=== PATIENT | female | born 1955 | race Caucasian/White ===

== ENCOUNTER 2016-12-24 21:52 | Emergency (ER) | payer OTHER ==
[2016-12-24 21:56] VITALS: TEMP 98.4
[2016-12-24 22:19] VITALS: O2SAT 94
--- NOTE | 2016-12-24 22:48 | EDPHY ---
H & P Stated Complaint: Pt is having LYNN and throat tightness after eating ice cream Time Seen by Provider: 12/24/16 22:23 HPI/ROS: HPI The patient presents with elevation in her blood pressure which began at about 8 :15 p.m. tonight. She was visiting her mother at an assisted living facility and her blood pressure was checked, it was 178/116. At about 8:00 p.m., she had eaten some ice cream which may have had vanilla extract in it. She takes an MAOI daily. At this time, she felt a pulsating throughout her body which she describes as a pounding sensation. This radiated towards the back of her head and caused her chest to feel tight. She felt somewhat photophobic. This resolved over time and now she feels completely well. She denies any other complaints. This is the 3rd time this has happened her. She was seen in the emergency room in March for similar after eating cheese. Her father earlier in the week. REVIEW OF SYSTEMS Constitutional: No fever, no chills. Eyes: No discharge. ENT: No sore throat. Cardiovascular: No chest pain, no palpitations. Respiratory: No cough, no shortness of breath. Gastrointestinal: No abdominal pain, no vomiting. Genitourinary: No hematuria. Musculoskeletal: No back pain. Skin: No rashes. Neurological: No headache. PMHx: Depression, high cholesterol PHYSICAL General Appearance: Alert, no distress Eyes: Pupils equal and round no pallor or injection ENT, Mouth: Mucous membranes moist Respiratory: There are no retractions, lungs are clear to auscultation Cardiovascular: Regular rate and rhythm Gastrointestinal: Abdomen is soft and non-tender, no masses, bowel sounds normal Neurological: A&O, moves all extremities Skin: Warm and dry, no rashes Musculoskeletal: Neck is supple non tender Extremities: symmetrical, full range of motion Psychiatric: Patient is oriented X 3, there is no agitation Source: Patient - Personal History Current Tetanus/Diphtheria Vaccine: Yes Current Tetanus Diphtheria and Acellular Pertussis (TDAP): Yes Tetanus Vaccine Date: 2014 - Medical/Surgical History Hx Asthma: No Hx Chronic Respiratory Disease: No Hx Diabetes: No Hx Cardiac Disease: No Hx Renal Disease: No Hx Cirrhosis: No Hx Alcoholism: No Hx HIV/AIDS: No Hx Splenectomy or Spleen Trauma: No Other PMH: high cholesterol, knee surg. partial knee repl 2013. cholecystectomy. cellulitis-non mrsa - Social History Smoking Status: Never smoked Constitutional: Initial Vital Signs Temperature (C) 36.9 C 12/24/16 21:54 Heart Rate 79 12/24/16 21:54 Respiratory Rate 16 12/24/16 21:54 Blood Pressure 127/77 H 12/24/16 21:54 O2 Sat (%) 96 12/24/16 21:54 O2 Delivery Mode Room Air Allergies/Adverse Reactions: Sulfa (Sulfonamide Antibiotics) Allergy (Verified 12/24/16 21:57) Home Medications: Medication Instructions Recorded Levothyroxine [Synthroid 75 mcg 75 mcg PO DAILY06 12/17/12 (RX)] [place]-3 Fatty Acids [Fish Oil 1000 1,000 mg PO DAILY 12/17/12 mg (OTC)] lamoTRIgine [LamICTAL 100 MG (RX)] 100 mg PO BID@,18 12/17/12 Multivitamins [Tab-A-Landy] 1 each PO DAILY 08/11/13 Parnate 01/28/15 Medical Decision Making - Diagnostics EKG Interpretation: EKG: Complete interpretation has been separately recorded in the [employer] archive. Summary impression: Normal sinus rhythm Differential Diagnosis: This is a 61-year-old female with history of depression on MAO inhibitor who presents with episode of elevated blood pressure earlier this evening, now resolved. This is associated with diffuse pounding sensation throughout her body. She now denies any complaints. Her blood pressure elevations have resolved on their own. She ate ice cream which had vanilla extract in it which could possibly be the cause of her symptoms. This could also be related to elevated blood pressure. IN would be unlikely. In the emergency room, patient had several normal BP keys. EKG was performed and showed no signs of ischemia. She would like to be discharged and was sent home with her friends. Departure - Departure Disposition: Home, Routine, Self-Care Clinical Impression: Elevated blood pressure reading, MAOI antidepressants causing adverse effect Condition: Good Instructions: Hypertension (ED) Additional Instructions: Please return to the emergency room if your worse in any way. Referrals: Catrachito Arora MD [Primary Care Provider] - As per Instructions
[2016-12-24 23:20] VITALS: BP 112/70; PULSE 78; RESP 12
--- NOTE | 2016-12-25 16:43 | CPEKG ---
Heart Rate: 73 RR Interval: 822 P-R Interval: 140 QRSD Interval: 74 QT Interval: 424 QTC Interval: 468 P [place]: 9 QRS [place]: 24 T Wave [place]: 15 EKG Severity - NORMAL ECG - EKG Impression: SINUS RHYTHM Electronically Signed By: Fareed Beckwith 26-Dec-2016 09:06:07
== END 2016-12-24 23:20 | disposition home or self-care (01) ==
DX: R03.0 Elevated blood-pressure reading, without diagnosis of hypertension (principal); T43.1X5A Adverse effect of monoamine-oxidase-inhibitor antidepressants, initial encounter

== ENCOUNTER 2017-01-09 10:02 | Emergency (ER) | payer OTHER ==
[2017-01-09 10:10] VITALS: O2SAT 96
--- NOTE | 2017-01-09 10:29 | EDPHY ---
H & P Stated Complaint: "feels heart pounding" may be reaction to stress or her meds" HPI/ROS: CHIEF COMPLAINT: Chest Pain, palpitations HISTORY OF PRESENT ILLNESS: Patient complains of palpitations and chest pressure that started around 9:00 a.m. this morning. Also feels that her blood pressure is up because of this. This was approximately 30 minutes after taking her MAOI [place]. She takes for depression as take this for several years. Over the past couple weeks, this was increased to 3 pills twice daily. She took without food. Soon after she started noting the palpitations and pressure. This has happened to her in the past. She feels that it is directly related to the medication but she does not like how she is feeling. She has minimal headache. She has no actual chest pain. No shortness of breath. No fever. No chills. No cough or congestion. No lower extremity erythema edema or pain. No history of venous thrombolic event or PE. PSYCHIATRIST: Dr. Cameron Guevara REVIEW OF SYSTEMS: Ten systems reviewed and are negative unless otherwise noted in the HPI EXAMINATION: General Appearance: Alert, no distress Head: normocephalic, atraumatic Eyes: Pupils equal and round, no conjunctival pallor or injection ENT, Mouth: Mucous membranes moist. Uvula midline. No erythema or edema. Neck: Normal inspection, supple, non-tender Respiratory: Lungs are clear to auscultation. No wheezing, rhonchi or crackles. Cardiovascular: Regular rate and rhythm. No murmur. Pulses intact distally. Gastrointestinal: Abdomen is soft and nontender Back: non-tender, no bony abnormalities Neurological: A&O, nonfocal, normal gait. Strength is symmetric in all limbs. GCS 15. Skin: Warm and dry, no rash Extremities: Nontender, no pedal edema Psychiatric: Mood and affect normal DIFFERENTIAL DIAGNOSES: Including but not limited to in no particular order: Acute Chest Pain, ACS, Stable Angina, Pneumonia, PE, duodenitis, gastritis, esophagitis, GERD MDM: 10:30 a.m. Palpitations and chest pressure that started at approximately 9:00 a.m.. Described as a pressure. Denies actual pain. This feels similar to her previous adverse reactions to the MAOI inhibitor she takes. She took the medicine without food this morning and feels that was the cause. She is in no acute distress. 11:30 a.m. Laboratory studies are all negative. Chest x-ray negative. EKG negative for any acute ischemia. I have re-evaluated the patient. She says her symptoms have not changed much. Offered admission to the hospital for observation and for serial troponins. She has declined. She prefers to be discharged home. She does inform me that she feels this is directly related to the medication that she took this morning and her level of stress. This has happened to her several times in the past. I informed her that although she is likely correct, we cannot be definitive without at least 1 other set of troponin laboratory study. She is aware of this and still wants to be discharged home. Informed that like her to rest today and to return to ER should her pain worsen, she developed pain radiating pain, nausea, vomiting or diaphoresis. She is comfortable with this plan, she is discharged home in stable condition at her request. EKG: Interpreted by Dr. Hairston SUPERVISION: This patient was independently evaluated without direct examination by the attending physician. Case was discussed with attending physician. Source: Patient, Old records Exam Limitations: No limitations - Personal History Current Tetanus/Diphtheria Vaccine: Yes Tetanus Vaccine Date: 2014 - Medical/Surgical History Hx Asthma: No Hx Chronic Respiratory Disease: No Hx Diabetes: No Hx Cardiac Disease: No Hx Renal Disease: No Hx Cirrhosis: No Hx Alcoholism: No Hx HIV/AIDS: No Hx Splenectomy or Spleen Trauma: No Other PMH: high cholesterol, knee surg. partial knee repl 2012. cholecystectomy. cellulitis-non mrsa - Social History Smoking Status: Never smoked Constitutional: Initial Vital Signs Temperature (C) 98.1 F 01/09/17 10:08 Heart Rate 68 01/09/17 10:08 Respiratory Rate 22 H 01/09/17 10:08 Blood Pressure 163/111 H 01/09/17 10:08 O2 Sat (%) 96 01/09/17 10:08 Allergies/Adverse Reactions: Sulfa (Sulfonamide Antibiotics) Allergy (Verified 01/09/17 10:07) Home Medications: Medication Instructions Recorded Levothyroxine [Synthroid 75 mcg 75 mcg PO DAILY06 12/17/12 (RX)] [place]-3 Fatty Acids [Fish Oil 1000 1,000 mg PO DAILY 12/17/12 mg (OTC)] lamoTRIgine [LamICTAL 100 MG (RX)] 100 mg PO BID@12/17/12 Multivitamins [Tab-A-Landy] 1 each PO DAILY 08/11/13 [facility]ate 01/28/15 Medical Decision Making - Diagnostics Imaging Results: Imaging Impressions Chest X-Ray 01/09/17 10:27 Impression: 1. No acute pulmonary disease. 2. Consider chest two views when the patient's medical condition permits. - Data Points Laboratory Results: Laboratory Results 01/09/17 10:38 01/09/17 10:38 01/09/17 01/09/17 01/09/17 10:38 10:38 10:38 WBC 4.97 10^3/uL 10^3/uL (3.80-9.50) RBC 4.89 10^6/uL 10^6/uL (4.18-5.33) Hgb 14.3 g/dL g/dL (12.6-16.3) Hct 42.6 % % (38.0-47.0) MCV 87.1 fL fL (81.5-99.8) MCH 29.2 pg pg (27.9-34.1) MCHC 33.6 g/dL g/dL (32.4-36.7) RDW 12.8 % % (11.5-15.2) Plt Count 210 10^3/uL 10^3/uL (150-400) MPV 9.3 fL fL (8.7-11.7) Neut % (Auto) 61.7 % % (39.3-74.2) Lymph % (Auto) 25.8 % % (15.0-45.0) [place] % (Auto) 9.3 % % (4.5-13.0) Eos % (Auto) 1.8 % % (0.6-7.6) Baso % (Auto) 1.2 % % (0.3-1.7) Nucleat RBC Rel Count 0.0 % % (0.0-0.2) Absolute Neuts (auto) 3.07 10^3/uL 10^3/uL (1.70-6.50) Absolute Lymphs (auto) 1.28 10^3/uL 10^3/uL (1.00-3.00) Absolute Monos (auto) 0.46 10^3/uL 10^3/uL (0.30-0.80) Absolute Eos (auto) 0.09 10^3/uL 10^3/uL (0.03-0.40) Absolute Basos (auto) 0.06 10^3/uL 10^3/uL (0.02-0.10) Absolute Nucleated RBC 0.00 10^3/uL 10^3/uL (0-0.01) Immature Gran % 0.2 % % (0.0-1.1) Immature Gran # 0.01 10^3/uL 10^3/uL (0.00-0.10) PT 12.7 SEC SEC (12.0-15.0) INR 0.96 (0.83-1.16) APTT 26.3 SEC SEC (23.0-38.0) Sodium 138 mEq/L mEq/L (134-144) Potassium 4.4 mEq/L mEq/L (3.5-5.2) Chloride 104 mEq/L mEq/L (97-110) Carbon Dioxide 24 mEq/l mEq/l (22-31) Anion Gap 10 mEq/L mEq/L (8-16) BUN 16 mg/dL mg/dL (7-23) Creatinine 1.1 mg/dL H mg/dL (0.6-1.0) Estimated GFR 51 Glucose 95 mg/dL mg/dL (70-100) Calcium 9.5 mg/dL mg/dL (8.5-10.4) Magnesium 2.1 mg/dL mg/dL (1.6-2.3) Total Bilirubin 0.6 mg/dL mg/dL (0.1-1.4) Conjugated Bilirubin 0.2 mg/dL mg/dL (0.0-0.5) Unconjugated Bilirubin 0.4 mg/dL mg/dL (0.0-1.1) AST 26 IU/L IU/L (14-46) ALT 36 IU/L IU/L (9-52) Alkaline Phosphatase 41 IU/L IU/L (38-126) Troponin I < 0.012 ng/mL ng/mL (0-0.034) NT-Pro-B Natriuret Pep 72 pg/mL pg/mL (0-125) Total Protein 7.0 g/dL g/dL (6.3-8.2) Albumin 4.5 g/dL g/dL (3.5-5.0) Lipase 109.0 IU/L IU/L (23-300) Departure - Departure Disposition: Home, Routine, Self-Care Clinical Impression: Drug reaction, Palpitations, Hypertension Condition: Good Instructions: Adverse Drug Reaction (ED), Hypertension (ED) Additional Instructions: Return to the ER for any worsening symptoms. Contact her primary care physician and psychiatrist regarding medication. Referrals: Catrachito Arora MD [Primary Care Provider] - As per Instructions Cameron Guevara MD [Non Staff Provider (MD)] - As per Instructions
--- NOTE | 2017-01-09 10:40 | CPEKG ---
Heart Rate: 69 RR Interval: 870 P-R Interval: 136 QRSD Interval: 78 QT Interval: 424 QTC Interval: 455 P [place]: 41 QRS [place]: 24 T Wave [place]: 12 EKG Severity - NORMAL ECG - EKG Impression: SINUS RHYTHM Electronically Signed By: Cam Hairston 09-Jan-2017 11:04:44
[2017-01-09 10:46] LABS: % IMMATURE GRANULYOCYTES 0.2 % (0.0-1.1); ABSOLUTE IMMATURE GRANULOCYTES 0.01 10^3/uL (0.00-0.10); ADD DIFF? NO; ADD MORPH? NO; ADD SCAN? NO; ATYPICAL LYMPHOCYTE FLAG 10 (0-99); FRAGMENT RBC FLAG 0 (0-99); HEMATOCRIT 42.6 % (38.0-47.0); HEMOGLOBIN 14.3 g/dL (12.6-16.3); LEFT SHIFT FLG 0 (0-99); LIPEMIA HEMOLYSIS FLAG 80 (0-99); MEAN CELL HEMOGLOBIN 29.2 pg (27.9-34.1); MEAN CELL HEMOGLOBIN CONCENTR. 33.6 g/dL (32.4-36.7); MEAN CELL VOLUME 87.1 fL (81.5-99.8); MEAN PLATELET VOLUME 9.3 fL (8.7-11.7); PLATELET CLUMPS FLAG 10 (0-99); PLATELET COUNT 210 10^3/uL (150-400); RED BLOOD CELL COUNT 4.89 10^6/uL (4.18-5.33); RED CELL DISTRIBUTION WIDTH 12.8 % (11.5-15.2)
[2017-01-09 11:09] LABS: ALANINE AMINOTRANSFERASE 36 IU/L (9-52); ALBUMIN 4.5 g/dL (3.5-5.0); ALKALINE PHOSPHATASE 41 IU/L (38-126); ANION GAP 10 mEq/L (8-16); ASPARTATE AMINOTRANSFERASE 26 IU/L (14-46); BILIRUBIN,TOTAL 0.6 mg/dL (0.1-1.4); BILIRUBIN-CONJUGATED 0.2 mg/dL (0.0-0.5); BILIRUBIN-UNCONJUGATED 0.4 mg/dL (0.0-1.1); CALCIUM 9.5 mg/dL (8.5-10.4); CARBON DIOXIDE 24 mEq/l (22-31); CHLORIDE 104 mEq/L (97-110); CREATININE 1.1 mg/dL (0.6-1.0); GLOMERULAR FILTRATION RATE 51; GLUCOSE 95 mg/dL (70-100); MAGNESIUM 2.1 mg/dL (1.6-2.3); POTASSIUM 4.4 mEq/L (3.5-5.2); SODIUM 138 mEq/L (134-144)
[2017-01-09 11:10] LABS: INR 0.96 (0.83-1.16); PROTIME(PATIENT) 12.7 SEC (12.0-15.0)
[2017-01-09 11:11] LABS: APTT 26.3 SEC (23.0-38.0)
[2017-01-09 11:17] LABS: TROPONIN I < 0.012 ng/mL (0-0.034)
[2017-01-09 11:51] VITALS: BP 143/97; PULSE 81; RESP 16; TEMP 98.2
== END 2017-01-09 11:51 | disposition home or self-care (01) ==
DX: T43 Poisoning by, adverse effect of and underdosing of psychotropic drugs, not elsewhere classified (principal); R00.2 Palpitations; I10 Essential (primary) hypertension

== ENCOUNTER 2017-08-31 20:05 | Emergency (ER) | payer OTHER ==
[2017-08-31 20:12] VITALS: TEMP 98.4
--- NOTE | 2017-08-31 20:28 | EDPHY ---
H & P Time Seen by Provider: 08/31/17 20:23 HPI/ROS: CHIEF COMPLAINT: Headache HISTORY OF PRESENT ILLNESS: This patient is a 62 y/o female complaining of severe headache onset around 7: 15pm, one hour prior to arrival. Onset of a throbbing frontal headache with pain radiating to her jaw, similar to other migraine LYNN's while she was eating at a restaurant. She thinks she ate a food which has adverse interactions with her MAOIBrijeshroger. She states this has happened in the past, and she generally develops headache, photophobia and hypertension. She has been evaluated in this emergency department before for similar symptoms, and states this headache feels the same. She took Tylenol at 7:45pm which has not relieved her symptoms. She denies nausea or vomiting. REVIEW OF SYSTEMS: A 10 point review of systems was performed and is negative with the exception of the elements mentioned in the history of present illness. Past Medical/Surgical History: 1. Hyperlipidemia 2. Orthopedic surgery (partial knee replacement 2012) 3. Cholecystectomy 4. Cellulitis Social History: Nonsmoker. Lives in [place]. Self-employed. Smoking Status: Never smoked Physical Exam: General Appearance: Alert, appears in pain Eyes: Pupils equal and round, no conjunctival pallor or injection ENT, Mouth: Mucous membranes moist Neck: Normal inspection Respiratory: Lungs are clear to auscultation Cardiovascular: Regular rate and rhythm Gastrointestinal: Abdomen is soft and non-tender Neurological: A&O, CN II-XII intact, motor/sensory intact Skin: Warm and dry, no rash Extremities: Nontender, no pedal edema Psychiatric: Mood and affect normal Constitutional: Initial Vital Signs Temperature (C) 36.9 C 08/31/17 20:10 Heart Rate 80 08/31/17 20:10 Respiratory Rate 18 08/31/17 20:10 Blood Pressure 189/113 H 08/31/17 20:10 O2 Sat (%) 94 08/31/17 20:10 O2 Delivery Mode Room Air Allergies/Adverse Reactions: Sulfa (Sulfonamide Antibiotics) Allergy (Verified 09/02/17 08:07) Home Medications: Medication Instructions Recorded Levothyroxine [Synthroid 75 mcg 75 mcg PO DAILY06 12/17/12 (RX)] [place]-3 Fatty Acids [Fish Oil 1000 1,000 mg PO DAILY 12/17/12 mg (OTC)] lamoTRIgine [LamICTAL 100 MG (RX)] 100 mg PO BID@,18 12/17/12 Multivitamins [Tab-A-Landy] 1 each PO DAILY 08/11/13 P[facility]ate 01/28/15 Ondansetron Odt [Zofran Odt] 4 mg PO Q4PRN PRN #20 tab 09/02/17 Medical Decision Making - Diagnostics EKG Interpretation: EKG interpreted by me reveals normal sinus rhythm, rate 74, no ST or T segment changes. ED Course/Re-evaluation: This patient presents with severe migraine headache after eating at a restaurant. Likely tyramine interaction; d/w pt risks of eating at restaurant, given multiple food interactions with MAO-I. IV normal saline 1 L and Toradol 15 mg IV given. Drug interactions with Mao-I's reviewed. BP elevated initially at 189/113, doubt serotonin syndrome, will observe for hypertensive crisis. 9:30 p.m.-blood pressure 162/105, feels much better and wants to go home. Neuro exam remains intacct. No evidence for worrisome cause of LYNN. Safe/ stable for d/c. Differential Diagnosis: Differential diagnosis includes does not limited to serotonin syndrome, hypertensive crisis, migraine headache, tension headache, meningitis - Data Points Medications Given: Discontinued Medications Sodium Chloride (Ns) 1,000 mls @ 0 mls/hr IV ONCE ONE; Wide Open PRN Reason: Protocol Stop: 08/31/17 20:40 Last Admin: 08/31/17 21:00 Dose: 1,000 mls Ketorolac Tromethamine (Toradol) 15 mg IVP EDNOW ONE Stop: 08/31/17 20:40 Last Admin: 08/31/17 21:01 Dose: 15 mg Departure - Departure Disposition: Home, Routine, Self-Care Clinical Impression: Migraine headache Qualifiers: Migraine type: without aura Status migrainosus presence: without status migrainosus Intractability: not intractable Qualified Code(s): G43.009 - Migraine without aura, not intractable, without status migrainosus Condition: Good Instructions: Migraine Headache (ED), Acute Headache (ED) Additional Instructions: 1. Follow-up with your primary care physician. 2. Return to the emergency department for recurrence of headache, persistent vomiting or other concerns. 3. Take Tylenol or ibuprofen as directed below as needed for pain. Adult Pain & Fever Control: We recommend Acetaminophen (Tylenol) and Ibuprofen (Motrin,Advil) for pain and fever control. When fever is high or pain severe, both drugs can be used at the same time, but at different intervals. Please note the time differences. Your dose is: Acetaminophen 650mg every 4 to 6 hours Ibuprofen 400mg every 6-8 hours with food Note: do not take Acetaminophen with Hydrocodone (Vicodin, Lortab) or Oxycodone (Percocet). These medications also contain Acetaminophen. No more than 3000mg of Acetaminophen should be taken in 24 hours (for an adult). Referrals: Catrachito Arora MD [Primary Care Provider] - As per Instructions Report Scribed for: Corrine Osman Report Scribed by: Honey Palacios Date of Report: 08/31/17 Time of Report: 20:27 Physician Review and Approval Statement: 08/31/17 20:27 Portions of this note were transcribed by a manager medical affairs. I personally performed a history, physical exam, medical decision making, and confirmed accuracy of information the transcribed note.
[2017-08-31] MEDS ORDERED: NS 1,000 ML IV ONE (20:39)
[2017-08-31] MEDS ORDERED: KETOROLAC 30 MG/1 ML SDV IVP ONE (20:39)
--- NOTE | 2017-08-31 20:58 | CPEKG ---
Heart Rate: 74 RR Interval: 811 P-R Interval: 132 QRSD Interval: 76 QT Interval: 416 QTC Interval: 462 P [place]: 39 QRS [place]: 24 T Wave [place]: 19 EKG Severity - BORDERLINE ECG - EKG Impression: SINUS RHYTHM EKG Impression: PROBABLE LEFT ATRIAL ABNORMALITY Electronically Signed By: Corrine Osman 31-Aug-2017 22:18:53
[2017-08-31 21:20] VITALS: RESP 18
[2017-08-31 22:20] VITALS: BP 153/93; PULSE 85; O2SAT 93
== END 2017-08-31 22:25 | disposition home or self-care (01) ==
DX: G43.009 Migraine without aura, not intractable, without status migrainosus (principal); E86.9 Volume depletion, unspecified
CPT/HCPCS: 96374; J1885

== ENCOUNTER 2017-09-02 08:07 | Emergency (ER) | payer OTHER ==
[2017-09-02] MEDS ORDERED: ONDANSETRON 4 MG/2 ML VIAL IVP ONE (08:14)
[2017-09-02] MEDS ORDERED: NS 1,000 ML IV ONE (08:14)
--- NOTE | 2017-09-02 08:19 | EDPHY ---
H & P Stated Complaint: n/v loose stools Time Seen by Provider: 09/02/17 08:16 HPI/ROS: CHIEF COMPLAINT: Intractable vomiting since midnight HISTORY OF PRESENT ILLNESS: The patient presents the ED with intractable vomiting since been diet. The patient denies significant abdominal pain. She was seen in the emergency department 2 days ago with a possible MAOI medication reaction. The patient does report some loose stool this morning. She denies shay diarrhea. She denies fever, dysuria, travel outside the [place], recent antibiotic use or additional acute complaints. The patient reports she has vomited 10 times since midnight. She denies any hematemesis. She reports the vomiting was bilious in nature. The patient does have a prior history of cholecystectomy. The patient reports that she does feel mildly dehydrated. She reports a mild 2/10 frontal headache. Additionally, the patient did have an episode of chest pain and palpitations last night. She denies any recent history of exertional chest pain or shortness of breath. She denies any pleuritic chest pain or asymmetric calf pain or swelling. REVIEW OF SYSTEMS: A comprehensive 10 point review of systems is otherwise negative aside from elements mentioned in the history of present illness. Source: Patient Exam Limitations: No limitations - Personal History Current Tetanus/Diphtheria Vaccine: Yes Tetanus Vaccine Date: 2014 - Medical/Surgical History Hx Asthma: No Hx Chronic Respiratory Disease: No Hx Diabetes: No Hx Cardiac Disease: No Hx Renal Disease: No Hx Cirrhosis: No Hx Alcoholism: No Hx HIV/AIDS: No Hx Splenectomy or Spleen Trauma: No Other PMH: high cholesterol, knee surg. partial knee repl 2012. cholecystectomy. cellulitis-non mrsa - Social History Smoking Status: Never smoked - Physical Exam Exam: General Appearance: Alert, no distress Eyes: Pupils equal and round no pallor or injection ENT, Mouth: Dry mucous membranes Respiratory: There are no retractions, lungs are clear to auscultation Cardiovascular: Regular rate and rhythm Gastrointestinal: Abdomen is soft and nontender, no masses, bowel sounds normal Neurological: A&O, normal motor function, normal sensory exam, normal cranial nerves Skin: Warm and dry, no rashes Musculoskeletal: Neck is supple nontender Extremities: symmetrical, full range of motion Constitutional: Initial Vital Signs Temperature (C) 36.6 C 09/02/17 08:08 Heart Rate 90 09/02/17 08:08 Respiratory Rate 20 09/02/17 08:08 Blood Pressure 128/91 H 09/02/17 08:08 O2 Sat (%) 98 09/02/17 08:08 O2 Delivery Mode Room Air Allergies/Adverse Reactions: Sulfa (Sulfonamide Antibiotics) Allergy (Verified 09/02/17 08:07) Home Medications: Medication Instructions Recorded Levothyroxine [Synthroid 75 mcg 75 mcg PO DAILY06 12/17/12 (RX)] [place]-3 Fatty Acids [Fish Oil 1000 1,000 mg PO DAILY 12/17/12 mg (OTC)] lamoTRIgine [LamICTAL 100 MG (RX)] 100 mg PO BID@,18 12/17/12 Multivitamins [Tab-A-Landy] 1 each PO DAILY 08/11/13 [place] 01/28/15 Ondansetron Odt [Zofran Odt] 4 mg PO Q4PRN PRN #20 tab 09/02/17 Medical Decision Making - Diagnostics EKG Interpretation: EKG: Complete interpretation has been separately recorded in the [facility] archive. Summary impression: Sinus rhythm ED Course/Re-evaluation: I reviewed the patient's past medical records. She had an IV established. She received a L of normal saline. She received 4 mg of IV Zofran. The patient's laboratory studies are within normal limits. She received serial examinations in the ED. Her vomiting has resolved. At 10:00 a.m. she is tolerating po's. She presents to the ED with nausea and vomiting likely secondary to a viral enteritis. She will be discharged home with customary aftercare instructions and return precautions. Differential Diagnosis: Differential diagnosis considered includes gastroenteritis, pancreatitis, dehydration, metabolic abnormality - Data Points Laboratory Results: Laboratory Results 09/02/17 08:25 09/02/17 08:25 09/02/17 09/02/17 09/02/17 08:26 08:25 08:25 WBC 8.70 10^3/uL 10^3/uL (3.80-9.50) RBC 5.25 10^6/uL 10^6/uL (4.18-5.33) Hgb 15.9 g/dL g/dL (12.6-16.3) Hct 45.6 % % (38.0-47.0) MCV 86.9 fL fL (81.5-99.8) MCH 30.3 pg pg (27.9-34.1) MCHC 34.9 g/dL g/dL (32.4-36.7) RDW 12.6 % % (11.5-15.2) Plt Count 253 10^3/uL 10^3/uL (150-400) MPV 9.1 fL fL (8.7-11.7) Neut % (Auto) 92.1 % H % (39.3-74.2) Lymph % (Auto) 3.4 % L % (15.0-45.0) [place] % (Auto) 3.6 % L % (4.5-13.0) Eos % (Auto) 0.1 % L % (0.6-7.6) Baso % (Auto) 0.5 % % (0.3-1.7) Nucleat RBC Rel Count 0.0 % % (0.0-0.2) Absolute Neuts (auto) 8.01 10^3/uL H 10^3/uL (1.70-6.50) Absolute Lymphs (auto) 0.30 10^3/uL L 10^3/uL (1.00-3.00) Absolute Monos (auto) 0.31 10^3/uL 10^3/uL (0.30-0.80) Absolute Eos (auto) 0.01 10^3/uL L 10^3/uL (0.03-0.40) Absolute Basos (auto) 0.04 10^3/uL 10^3/uL (0.02-0.10) Absolute Nucleated RBC 0.00 10^3/uL 10^3/uL (0-0.01) Immature Gran % 0.3 % % (0.0-1.1) Immature Gran # 0.03 10^3/uL 10^3/uL (0.00-0.10) Sodium 140 mEq/L mEq/L (134-144) Potassium 4.6 mEq/L mEq/L (3.5-5.2) Chloride 104 mEq/L mEq/L (97-110) Carbon Dioxide 22 mEq/l mEq/l (22-31) Anion Gap 14 mEq/L mEq/L (8-16) BUN 20 mg/dL mg/dL (7-23) Creatinine 1.0 mg/dL mg/dL (0.6-1.0) Estimated GFR 57 Glucose 158 mg/dL H mg/dL (70-100) Calcium 9.8 mg/dL mg/dL (8.5-10.4) Total Bilirubin 0.7 mg/dL mg/dL (0.1-1.4) Conjugated Bilirubin 0.1 mg/dL mg/dL (0.0-0.5) Unconjugated Bilirubin 0.6 mg/dL mg/dL (0.0-1.1) AST 21 IU/L IU/L (14-46) ALT 32 IU/L IU/L (9-52) Alkaline Phosphatase 45 IU/L IU/L (38-126) Troponin I < 0.012 ng/mL ng/mL (0.000-0.034) Total Protein 7.4 g/dL g/dL (6.3-8.2) Albumin 4.7 g/dL g/dL (3.5-5.0) Lipase 116 IU/L IU/L (23-300) Medications Given: Discontinued Medications Sodium Chloride (Ns) 1,000 mls @ 0 mls/hr IV ONCE ONE PRN Reason: Wide Open Stop: 09/02/17 08:15 Last Admin: 09/02/17 08:24 Dose: 1,000 mls Ondansetron HCl (Zofran) 4 mg IVP EDNOW ONE Stop: 09/02/17 08:15 Last Admin: 09/02/17 08:24 Dose: 4 mg Departure - Departure Disposition: Home, Routine, Self-Care Clinical Impression: Gastroenteritis Condition: Good Instructions: Gastroenteritis (ED) Additional Instructions: 1. Return to the ED for markedly worsening symptoms, pain, intractable vomiting or other concerns. 2. Zofran as needed for nausea. Referrals: Catrachito Arora MD [Primary Care Provider] - As per Instructions
[2017-09-02 08:33] LABS: % IMMATURE GRANULYOCYTES 0.3 % (0.0-1.1); ABSOLUTE IMMATURE GRANULOCYTES 0.03 10^3/uL (0.00-0.10); ADD DIFF? NO; ADD MORPH? NO; ADD SCAN? NO; ATYPICAL LYMPHOCYTE FLAG 0 (0-99); FRAGMENT RBC FLAG 0 (0-99); HEMATOCRIT 45.6 % (38.0-47.0); HEMOGLOBIN 15.9 g/dL (12.6-16.3); LEFT SHIFT FLG 0 (0-99); LIPEMIA HEMOLYSIS FLAG 90 (0-99); MEAN CELL HEMOGLOBIN 30.3 pg (27.9-34.1); MEAN CELL HEMOGLOBIN CONCENTR. 34.9 g/dL (32.4-36.7); MEAN CELL VOLUME 86.9 fL (81.5-99.8); MEAN PLATELET VOLUME 9.1 fL (8.7-11.7); PLATELET CLUMPS FLAG 0 (0-99); PLATELET COUNT 253 10^3/uL (150-400); RED BLOOD CELL COUNT 5.25 10^6/uL (4.18-5.33); RED CELL DISTRIBUTION WIDTH 12.6 % (11.5-15.2)
--- NOTE | 2017-09-02 08:50 | CPEKG ---
Heart Rate: 76 RR Interval: 789 P-R Interval: 140 QRSD Interval: 76 QT Interval: 440 QTC Interval: 495 P [place]: -1 QRS [place]: 32 T Wave [place]: 23 EKG Severity - BORDERLINE ECG - EKG Impression: SINUS RHYTHM Electronically Signed By: Krystian Pan 02-Sep-2017 08:52:40
[2017-09-02 08:54] LABS: ALANINE AMINOTRANSFERASE 32 IU/L (9-52); ALBUMIN 4.7 g/dL (3.5-5.0); ALKALINE PHOSPHATASE 45 IU/L (38-126); ANION GAP 14 mEq/L (8-16); ASPARTATE AMINOTRANSFERASE 21 IU/L (14-46); BILIRUBIN,TOTAL 0.7 mg/dL (0.1-1.4); BILIRUBIN-CONJUGATED 0.1 mg/dL (0.0-0.5); BILIRUBIN-UNCONJUGATED 0.6 mg/dL (0.0-1.1); CALCIUM 9.8 mg/dL (8.5-10.4); CARBON DIOXIDE 22 mEq/l (22-31); CHLORIDE 104 mEq/L (97-110); GLOMERULAR FILTRATION RATE 57; GLUCOSE 158 mg/dL (70-100); POTASSIUM 4.6 mEq/L (3.5-5.2); SODIUM 140 mEq/L (134-144); TOTAL PROTEIN 7.4 g/dL (6.3-8.2)
[2017-09-02 10:17] VITALS: BP 130/86; PULSE 85; RESP 16; TEMP 98.2; O2SAT 96
== END 2017-09-02 10:14 | disposition home or self-care (01) ==
DX: K52.9 Noninfective gastroenteritis and colitis, unspecified (principal)
CPT/HCPCS: 96374; J2405

== ENCOUNTER → 2018-03-21 | Outpatient (CLI) | payer OTHER | LOC: FIMAGING 09:40 | PROVIDERS: ATTEND Internal Medicine | DX: Z12.31 Encounter for screening mammogram for malignant neoplasm of breast (principal); Z13.820 Encounter for screening for osteoporosis; M85.89 Other specified disorders of bone density and structure, multiple sites; Z78.0 Asymptomatic menopausal state; E03.9 Hypothyroidism, unspecified ==

== ENCOUNTER → 2018-04-15 | Outpatient (CLI) | payer OTHER | LOC: BMCIMAGING 16:09 | PROVIDERS: ATTEND Internal Medicine | DX: S62.616A Displaced fracture of proximal phalanx of right little finger, initial encounter for closed fracture (principal) ==

== ENCOUNTER → 2018-11-07 | Outpatient (CLI) | payer OTHER ==
[~2018-11-07] MED LIST: IOHEXOL 300 mgI/ML (OMNIPAQUE) 150 ML BTL IV ONE
== END ==
LOC: FIMAGING 08:01
PROVIDERS: ATTEND Internal Medicine
DX: E27.49 Other adrenocortical insufficiency (principal); N20.0 Calculus of kidney
CPT/HCPCS: Q9967